=== PATIENT | female | born 1980 | race Two or more races ===

== ENCOUNTER 2021-12-13 05:44 | Day surgery (SDC) | payer OTHER ==
[~2021-12-13] VITALS: Ht 167.6 cm; Wt 76.2 kg
[~2021-12-13 05:44] MED LIST: LIPITOR PO
[2021-12-13] MEDS ORDERED: MORGIDOX100 MG PO (08:38)
[2021-12-13] MEDS ORDERED: IBU600 MG PO (08:38)
== END 2021-12-13 14:05 | disposition home or self-care (01) ==
LOC: CIR.AMB 05:44
PROVIDERS: ATTEND Obstetrics & Gynecology
DX: D25.0 Submucous leiomyoma of uterus (principal); Z20.822 Contact with and (suspected) exposure to COVID-19; Z88.8 Allergy status to other drugs, medicaments and biological substances; G43.909 Migraine, unspecified, not intractable, without status migrainosus

== ENCOUNTER 2022-12-16 12:18 | Inpatient (IN) | payer OTHER ==
[~2022-12-16] VITALS: Ht 167.6 cm; Wt 78.0 kg
[~2022-12-16 12:18] MED LIST changes: +ATORVASTATIN CA10 MG; +FLONASE16 GM; +IBU600 MG PO; +KETO10TA2 PO; +MAXFE CAPLET1 EAC1 PO; +MORGIDOX100 MG PO; +PEPCID AC20 MG PO; +TAMS0.4C PO; +TRAM1TAB98 PO
--- NOTE | 2022-12-16 12:36 | NUR ---
PACIENTE ALERTA Y ORIENTADA X 3. REFIERE FUE OPERADA POR DR BROWN EL DE (HISTERECTOMIA) Y HOY COMENZO CON [place] CON COAGULOS. REFIERE FUE A OFICINA MEDICA Y STEPHANY LA REFIERE PARA ER.
--- NOTE | 2022-12-16 12:59 | NUR ---
SE ORIENTA PTE SOBRE EL TRATAMIENTO ORDENADO POR EL DR MCIHAEL PTE ALERTA Y ORIENTADO POR 3 SE REALIZAN MUESTRAS DE LABORATORIO PTE EN ESPERA DE CT
== END 2022-12-18 13:58 | disposition home or self-care (01) | DRG 761 ==
LOC: ER 12:18 → SEC-K 14:40 → OB/GYN 14:40
PROVIDERS: ADMIT Obstetrics & Gynecology; ATTEND Obstetrics & Gynecology
PROC: BW21YZZ Computerized Tomography (CT Scan) of Abdomen and Pelvis using Other Contrast (ICD-10-PCS; principal; 2022-12-16)
DX: N93.8 Other specified abnormal uterine and vaginal bleeding (principal); Z20.822 Contact with and (suspected) exposure to COVID-19